=== PATIENT | male | born 1960 | race African-American/Black ===

== ENCOUNTER → 2021-05-27 | Outpatient (CLI) | payer MEDICARE, MEDICAID ==
[~2021-05-27] MED LIST: BLOOD PRESSURE MED; CATAPRES; CATAPRES0.2 MG PO; CLONAZEPAM PO; COUMADIN3 MG PO; DOXYCYCLINE100 M2 PO; HCTZ 25MG TAB25 MG PO; LISINOPRIL20 MG PO; LORTAB 2.5/5001 TAB PO; LORTAB 5/500 501 TAB PO; LORTAB 7.5/5001 TAB; NORCO 325 MG-7.1 TAB PO; PERCOCET 5/321 UDTAB PO; PREDNISONE10 MG PO; REGLAN 10MG10 MG/TAB PO; SEROQUEL; SLEEPING PILL; SYNTHROID0.05 MG PO; SYNTHROID0.1 MG/TAB PO; TRIAMTERENE AND1 TA1 PO
== END ==
LOC: COL.RAD 14:00
DX: I63.9 Cerebral infarction, unspecified (principal); G43.009 Migraine without aura, not intractable, without status migrainosus
CPT/HCPCS: A9585

== ENCOUNTER → 2021-09-17 | Outpatient (CLI) | payer MEDICARE, MEDICAID | LOC: COL.RAD 09:00 | DX: M51.16 Intervertebral disc disorders with radiculopathy, lumbar region (principal); M47.26 Other spondylosis with radiculopathy, lumbar region; M48.061 Spinal stenosis, lumbar region without neurogenic claudication ==